=== PATIENT | female | born 1950 | race Caucasian/White ===

== ENCOUNTER → 2022-06-11 13:15 | Outpatient (CLI) | payer OTHER, SELFPAY ==
--- NOTE | 2022-06-11 | DI.RAD.S_ITS ---
PROCEDURE: XR HIP W PEL IF DONE RT 2V INDICATIONS: right hip pain, osteoarthritis of right hip TECHNIQUE: AP pelvis with lateral view(s) of the right hip(s). COMPARISON: [facility], , XR PELVIS WITH LATERAL HIP RIGHT, 05/02/2021, 11:00. FINDINGS: Bones: No acute fractures or dislocations. Pelvic ring appears intact. No suspicious bony lesions. Severe degenerative changes of the right hip with pronounced joint space loss, subchondral sclerosis, and joint spurring. Severe degenerative changes of the left hip also demonstrated. Soft tissues: The visualized bowel gas pattern is normal. No suspicious soft tissue calcifications. IMPRESSION: Severe degenerative changes of both hips, right worse than left. Dictated by: Arnulfo Andersen M.D. on 06/11/2022 at 18:49 Approved by: Arnulfo Andersen M.D. on 06/11/2022 at 18:52
== END ==
PROVIDERS: PCP Physician Assistant; Referring Provider Physician Assistant; Visit Provider Physician Assistant
DX: M16.11 Unilateral primary osteoarthritis, right hip (principal); M25.551 Pain in right hip
CPT/HCPCS: 73502

== ENCOUNTER → 2024-03-18 12:28 | Outpatient (CLI) | payer OTHER, SELFPAY ==
--- NOTE | 2024-03-18 12:31 | EKG_ITS ---
[place] [id number] [address] [place] [id number] Test Date: 2024-03-18 Pat Name: Emily Galvez Department: [facility] Room: Gender: Female Speeder Hand: PADILLA : 1950 Requested By: Order Number: [id number] Reading MD: Kirk Espinoza Measurements Intervals [place] Rate: 73 P: 1 IL: 188 QRS: -20 QRSD: 84 T: 69 QT: 384 QTc: 423 Interpretive Statements Sinus rhythm with premature atrial complexes Moderate voltage criteria for LVH, may be normal variant ( R in aVL , Carlos product ) Electronically Signed On 03-21-2024 15:19:55 PDT by Kirk Espinoza
[2024-03-18 13:32] LABS: Add Manual Diff / Slide Review NO; Basophils Absolute Auto 0 /uL (0-100); Basophils Percent Auto 0.5 % (0-2); Eosinophils Absolute Auto 200 /uL (0-450); Eosinophils Percent Auto 2.7 % (2-4); Hematocrit 32.5 % (36-46); Hemoglobin 10.6 g/dL (12.0-16.0); Lymphocytes Absolute Auto 1700 /uL (1100-4500); Lymphocytes Percent Auto 19.5 % (25-40); Mean Corpuscular HGB Conc 32.5 % (30-36); Mean Corpuscular Hemoglobin 26.8 PG (26-34); Mean Corpuscular Volume 82.5 fL (80-100); Monocytes Absolute Auto 400 /uL (0-900); Monocytes Percent Auto 5.2 % (3-14); Neutrophils Absolute Auto 6200 /uL (1500-7000); Neutrophils Percent Auto 72.1 % (50-75); Platelet Count 259 X10^3/uL (150-400); Red Blood Cell Count 3.95 X10^6/uL (4.0-5.2); Red Cell Distribution Width 15.8 % (11.6-14.8); White Blood Cell Count 8.6 X10^3/uL (4.5-11.0)
[2024-03-18 13:38] LABS: Hemoglobin A1C% w Est Avg Glu 5.9 % (4.0-6.0)
[2024-03-18 13:42] LABS: BUN Creatinine Ratio 23.5 (6-22); Blood Urea Nitrogen 24 mg/dL (7-17); Calcium 8.9 mg/dL (8.4-10.2); Carbon Dioxide 23 mmol/L (22-32); Chloride 107 mmol/L (98-107); Estimated Glomerular Filt Rate 58 mL/min (>60); Glucose 168 mg/dL (80-110); HEMOLYSIS < 15 (0-50); Potassium 5.1 mmol/L (3.4-5.1); Sodium 140 mmol/L (137-145)
[2024-03-18 14:33] LABS: Appearance Urine UA CLOUDY; Bilirubin Urine UA NEGATIVE (NEGATIVE); Color Urine UA YELLOW; Glucose Urine UA NEGATIVE (Negative); Ketones Urine UA NEGATIVE (NEGATIVE); Leukocyte Esterase Urine UA 3+ (NEGATIVE); Nitrite Urine UA POSITIVE (Negative); Occult Blood Urine UA NEGATIVE (Negative); Protein Urine UA NEGATIVE (Negative); Specific Gravity Urine UA 1.015 (1.000-1.035)
[2024-03-18 14:34] LABS: Urine Volume 10mL (spun); pH Urine UA 5.5 (4.5-8.0)
[2024-03-18 14:35] LABS: Bacteria Urine Moderate (10-30); Culture Indicated Urine Specimen Cultured; RBC Urine None Seen (0-5/HPF); Squamous Epithelial Cell Urine 1-5 /HPF (0-5/HPF); WBC Urine 10-30/HPF (0-5/HPF)
== END ==
LOC: LAB 12:29
PROVIDERS: PCP Physician Assistant; Referring Provider Orthopaedic Surgery; Visit Provider Orthopaedic Surgery
DX: Z01.818 Encounter for other preprocedural examination (principal); R73.9 Hyperglycemia, unspecified; Z01.812 Encounter for preprocedural laboratory examination; N39.0 Urinary tract infection, site not specified
CPT/HCPCS: 36415; 80048; 81001; 83036; 85025; 87077; 87086; 87186; 93005

== ENCOUNTER 2024-04-05 11:07 | Day surgery (SDC) | payer MEDICARE, SELFPAY ==
[2024-04-01 13:47] VITALS: BMI 39.7
[2024-04-05] VITALS (11 sets, daily range): BP systolic 119–179; BP diastolic 55–79; PULSE 68–80; RESP 12–20; TEMP 36.6–36.8; O2SAT 96–100; BMI 40.3
--- NOTE | 2024-04-05 | DI.RAD.S_ITS ---
PROCEDURE: XR PELVIS 1-2V INDICATIONS: SRI RIGHT, INTRAOP TECHNIQUE: 1 view(s) of the pelvis acquired. [facility] [place], XR PELVIS WITH LATERAL HIP RIGHT, 03/17/2024, 14:58. FINDINGS: Bones: Right hip arthroplasty. Intraoperative images. Soft tissues: Surgical changes are present. IMPRESSION: Intraoperative images for right hip arthroplasty. Please see operative note for full details. Dictated by: Cheikh Calix M.D. on 04/05/2024 at 16:06 Approved by: Cheikh Calix M.D. on 04/05/2024 at 16:06
--- NOTE | 2024-04-05 08:00 | DI.RAD.S_ITS ---
PROCEDURE: XR HIP W PEL IF DONE RT 2V INDICATIONS: SRI TECHNIQUE: AP pelvis and lateral view of the hip acquired. COMPARISON: [facility], [place], XR HIP W PEL IF DONE RT 2V, 06/11/2022, 13:43. [facility], [place], XR PELVIS 1-2V, 04/05/2024, 14:53. FINDINGS: Bones: Patient is status post right hip arthroplasty, with hardware components in expected positions. The hip joint appears congruent. The visualized bony structures appear intact. Severe left hip arthritic change. Soft tissues: Overlying postoperative changes are noted. No suspicious soft tissue densities. IMPRESSION: Expected post-operative appearance of a hip arthroplasty. Dictated by: Rosio Shin M.D. on 04/05/2024 at 17:13 Approved by: Rosio Shin M.D. on 04/05/2024 at 17:13
[2024-04-05] MEDS: CELECOXIB 200 MG CAPSULE PO (11:51)
[2024-04-05] MEDS: LACTATED RINGERS 1,000 ML 42 ML IV (11:51)
[2024-04-05] MEDS: ACETAMINOPHEN 325 MG TABLET 975 MG PO (11:51)
[2024-04-05] MEDS: VANCOMYCIN 1,500 MG/300 ML PIGGYBACK 200 MG IV (11:52)
--- NOTE | 2024-04-05 13:30 | PM.PREOP ---
Pre-operative Note Interval Note History & Physical reviewed/Exam performed by Physician: Yes Changes to H&P: No
--- NOTE | 2024-04-05 13:45 | PM.OP.1 ---
Operative Date/Time/Diagnoses Date of procedure: 04/05/24 Time of procedure: 14:00 Pre-op diagnosis: Severe right hip OA, morbid obesity, DM Post-op diagnosis: same Procedure & Clinicians Procedure: Right total hip arthroplasty posterior approach Same procedure as scheduled: Yes Indications: The patient has had progressively worsening right hip pain with radiographic changes consistent with arthritis. Non-operative management has failed and the patient has requested total hip replacement. The risks, benefits and alternatives to surgery were discussed with the patient prior to proceeding. Risks discussed included, but were not limited to, failure to relieve pain, leg length discrepancy, dislocation, stiffness, infection, nerve damage, deep venous thrombosis, pulmonary embolism, stroke, coma, heart attack, permanent paralysis and , as well as the potential need for eventual revision of the prosthetic. Surgeon: Kamila Gar Sagger Filler: Nestor Liu Anesthesia Type: General and Spinal Operative Notes Findings: Severe right hip OA, adequate stability, adequate bone Closure Type: primary Specimen(s): none sent Prosthetic devices, grafts, tissues, transplants, or devices: Gar and nephew R3 size 52, neutral poly liner, one 6.5 mm screw, polar stem standard offset size 2, 36 x +0 cobalt chrome head Estimated Blood Loss (mL): 250 Blood products transfused: none Procedure in detail: The patient was seen in the pre-operative area, where the patient identified the right hip as the operative site and this was marked with my initials. The patient received pre-operative antibiotics and was taken to the operating room and placed on the operative table in the left lateral decubitus position after satisfactory anesthesia. A multimedia developer out was performed. The right leg was prepared from the ankle to the iliac crest with ChloroPrep in the usual fashion and draped through sterile drapes. The hip was approached through an approximately 24 cm incision centered over the greater trochanter and curving gently posteriorly as it went proximally. This was carried sharply to the fascia yudelka, which was divided and retracted with a self retaining retractor. The trochanteric bursa was excised with care being taken to avoid the sciatic nerve, which was identified and protected throughout the case. The short external rotators were incised and the capsulomuscular flap was raised and tagged for later repair. The hip was dislocated, and a femoral neck osteotomy performed approximately 15 mm above the lesser trochanter. Retractors were placed around the femur. The canal was opened with a box cutting osteotome, followed by a T handled reamer and a lateralizing reamer. The chili pepper broach was then used, followed by sequential broaching until there was good stability of the broach in the femur. Retractors were placed to expose the acetabulum. The labrum and central soft tissues were removed. Reaming was performed initially going up in 2 mm increments, then 1 mm increments until good bite was obtained with an odd sized reamer. The cup 1 mm larger than the last reamer was then inserted using the appropriate anteversion guides. It was further stabilized with a single screw. A trial neutral liner was placed. The broach was placed in the canal. A trial head and neck were then placed and the hip relocated and checked for leg length and stability. An intraoperative film confirmed the component position and no evidence of fracture. The patient was stable in the position of sleep, of squatting, and could be put through a range of motion with 45 degrees internal rotation without dislocation. At 90 degrees flexion, internal rotation to 70 ? was possible before dislocation. This was felt to be satisfactory and the appropriate components were opened, and the trials were removed. The acetabular liner was impacted into position. The final stem was then impacted into the prepared femoral canal. A brief Betadine and hydrogen peroxide soak was performed while trialing with head options. The hip was meticulously irrigated with normal saline. Finally the femoral head was impacted onto the stem. The acetabulum was cleared of all material and the hip relocated one final time. The capsulomuscular flap was then repaired to the greater trochanter though an awl hole using the tag sutures. The short external rotators were repaired with a nonabsorbable suture. A deep drain was placed and brought out anteriorly. The fascia yudelka was closed with Vicryl. The subcutaneous tissues were closed in multiple layers. The subcutaneous layer was closed with barbed sutures and skin conrad. A rosa dressing was applied and the patient was taken to recovery having tolerated the procedure well. Complications: none Post-operative Condition: stable Disposition: Acute Care Plan for aftercare: The patient will be maintained on a standard total hip replacement protocol with weight bearing as tolerated and posterior hip precautions. The patient will receive Aspirin and sequential compression devices for DVT prophylaxis. The patient will be discharged home when safe for the home environment.
--- NOTE | 2024-04-05 14:03 | SUR.OPER ---
Lateral on padded OR bed. Gel axillary roll. Arms secured on padded armboard with pillow supporting top arm. Padded hip positioner braces x4 - anterior and posterior chest and pelvis. Additional gel pad used anterior pelvis. Gel pad under bottom leg from knee to foot and secured with tape over sheet.
[2024-04-05] MEDS: CEFAZOLIN 2 GM/100 ML PREMIX 100 ML IV ×2 (14:10→21:43)
[2024-04-05] MEDS: TRANEXAMIC ACID 1,000 MG in SODIUM CHLORIDE 0.9% 100 ML 200 MG IV ×2 (14:21→15:56)
--- NOTE | 2024-04-05 14:33 | SUR.OPER ---
PT HAS SMALL SKIN MASS UNDER PANSA ON RIGHT LOWER QUADRANT. DR JOLLY AWARE.
[2024-04-05] MEDS: BUPIVACAINE 0.25% (PF) 60 ML, EPINEPHrine 0.3 MG INJ ×2 (14:41→15:48)
[2024-04-05] MEDS: BUPIVACAINE LIPOSOME 266 MG/20 ML VIAL INJ (15:47)
[2024-04-05] MEDS: ONDANSETRON 4 MG/2 ML INJ IV ×2 (16:48→17:49)
[2024-04-05] MEDS: OXYCODONE IR 5 MG TABLET PO ×3 (17:11→20:38)
[2024-04-05] MEDS: LACTATED RINGERS 1,000 ML 100 ML IV (17:32)
[2024-04-05] MEDS: ACETAMINOPHEN 325 MG TABLET 650 MG PO (17:49)
--- NOTE | 2024-04-05 18:22 | PC.NURSE ---
Pt to room 216 via bed from PACU. Pt is awake and oriented x 3. Family members are present at the bedside. Pt was given Zofran for nausea and is not having emesis. O2 sat is 99% on RA. Pt has been instructed on how to use the IS spirometer and Pt was able perform return demonstration and was very encouraging to Pt. SCD's on and running, IVF infusing as ordered, Bed alarm on for safety. Pt oriented to room, call light, bed controls, and tv controls. Pt agrees to not get up without assistance and to use call light for assistance as needed.
[2024-04-05] MEDS: IBUPROFEN 400 MG TABLET PO (18:35)
[2024-04-05] MEDS: HYDROCODONE/ACET 5/325 TABLET 1 TAB PO (20:37)
[2024-04-05] MEDS: ATORVASTATIN 20 MG TABLET PO (20:38)
[2024-04-05] MEDS: SERTRALINE 50 MG TABLET 100 MG PO (20:39)
[2024-04-05] MEDS: ASPIRIN EC 81 MG TABLET PO (20:39)
[2024-04-05] MEDS: lisinopriL 20 MG TABLET PO (20:39)
[2024-04-05] MEDS: DOCUSATE 100 MG CAPSULE PO (20:39)
[2024-04-05] MEDS: METFORMIN XR 500 MG TABLET PO (20:39)
[2024-04-06 00:45] VITALS: BP 144/64; PULSE 78; RESP 18; O2SAT 99
[2024-04-06] MEDS: IBUPROFEN 400 MG TABLET PO (00:59)
[2024-04-06] MEDS: OXYCODONE IR 5 MG TABLET PO ×2 (01:00→04:02)
[2024-04-06] MEDS: ACETAMINOPHEN 325 MG TABLET 650 MG PO (04:02)
[2024-04-06] MEDS: CEFAZOLIN 2 GM/100 ML PREMIX 100 ML IV (05:18)
[2024-04-06] MEDS: LORazepam 1 MG TABLET PO ×3 (05:20→19:55)
--- NOTE | 2024-04-06 06:56 | PM.PNPO.1 ---
Subjective Subjective Date Patient Seen: 04/06/24 Time Patient Seen: 06:56 Interval history: Pt seen by Dr Gar this morning. Per Dr Gar, pt having a lot of anxiety related to postop progress, but spouse feels she will be ready for discharge later today. Has not been OOB or worked w/ PT yet. Exam Vital Signs (past 8 hours): - 04/06/24 00:45 Pulse Rate 78 Respiratory Rate 18 Blood Pressure 144/64 H Pulse Oximetry 99 Oxygen Delivery Method Room Air Oxygen Flow Rate 0 Narrative Exam Narrative: 3/5 strength in hip flexors, quadriceps, hamstrings; 5/5 PF, DF, EHL on right. Sensation to light touch intact throughout RLE, calf soft and compressible. Dressing CDI. [facility], [facility] Medical History (Updated 04/05/24 @ 12:01 by Johanna Stuart RN) Morbid obesity Anxiety Depression RLS (restless legs syndrome) Osteoarthritis Diabetes Hypothyroidism HLD (hyperlipidemia) HTN (hypertension) Surgical History (Updated 04/06/24 @ 06:58 by Cynthia Kaur PA-C) Hx of tonsillectomy Social History household members: spouse and children Smoking Status: Never smoker alcohol intake: never Assessment & Plan Post-op Assessment and plan (1) S/P total hip arthroplasty: Assessment and Plan narrative: 1) PT and caregiver training. WBAT to RLE, posterior hip precautions. May be able to d/c home later today if she makes adequate progress w/ PT. 2) Pt on hydrocodone 5/325 BID at baseline. This should be continued w/ oxycodone PRN for acute postsurgical pain. 3) Continue ASA 81mg BID for VTE prophylaxis. 4) Will send postop rxs in the event pt would like to d/c home later today. Postoperative Procedures: Procedures Operation Date: 04/05/24 13:15 Actual Procedure Side Surgeon p Total Hip Arthroplasty Right Kamila Gar MD Postoperative day: 1
[2024-04-06] MEDS: HYDROCODONE/ACET 5/325 TABLET 1 TAB PO ×2 (08:37→20:57)
[2024-04-06] MEDS: ASPIRIN EC 81 MG TABLET PO ×2 (08:37→21:02)
[2024-04-06] MEDS: LEVOTHYROXINE 50 MCG TABLET PO (08:37)
[2024-04-06] MEDS: SERTRALINE 50 MG TABLET 100 MG PO ×2 (08:38→20:57)
[2024-04-06] MEDS: DOCUSATE 100 MG CAPSULE PO ×2 (08:38→21:02)
[2024-04-06] MEDS: METFORMIN XR 500 MG TABLET PO ×2 (08:38→21:03)
[2024-04-06 08:51] LABS: Hematocrit 27.7 % (36-46)
[2024-04-06 09:36] VITALS: BP 120/59; PULSE 86; TEMP 36.5; O2SAT 93
[2024-04-06] MEDS: OXYCODONE IR 10 MG TABLET PO ×3 (10:46→18:13)
--- NOTE | 2024-04-06 10:46 | OT.IP.EVAL ---
Current Diagnoses Unilateral primary osteoarthritis, right hip (04/05/24) Presence of unspecified artificial hip joint (04/05/24) Surgery Performed Operation Date: 04/05/24 13:15 Actual Procedures p Total Hip Arthroplasty(Right) - Kamila Gar MD Past Medical History (Last Updated 04/05/24 @ 12:01 by Johanna Stuart, [place]) Anxiety Depression Diabetes HLD (hyperlipidemia) HTN (hypertension) Hypothyroidism Morbid obesity Osteoarthritis RLS (restless legs syndrome) Surgical History (Last Updated 04/01/24 @ 14:09 by Gianna Mars, [place]) Hx of tonsillectomy Occupational Therapy Inpatient Evaluation/Re-Eval M1 PT/OT-IP Prior Functional Status Start: 04/06/24 10:48 Freq: NEEDED Status: Active Protocol: Document 04/06/24 10:49 [facility] (Rec: 04/06/24 11: [facility] [id number]) Medical Review Prior Functional Status Communication Independent Mobility and Gait Pt just able to walk 20ft with her 4ww. Activities of Daily Living and IADL's Pt's assisted with LB dressing needs and toileting as pt was very weak and not able to get around well. Social History Household Members spouse,children Living Arrangements House Number of Floors (Floors) One Floor Number of Stairs To Enter/Railing? Just a threshold to enter. There is 30 ft from the sidewalk to the front of the house to negotiate. Pt has a wc that they can use to assist to get her into the house. Home Environment High Toilet,Walk in Shower Home Equipment Front Wheel Walker,Four Wheel Walker,Straight Cane,Manual Wheelchair,Power Wheelchair/ Scooter,Bedside Commode,Hand Held Shower,Long Handled Shoe Horn,Business Office Technician,Sock Aid,Grab Bars In Shower Additional Social History Comment Toilet safety frame M2 OT-IP Current Condition Start: 04/06/24 10:48 Freq: Status: Active Protocol: Document 04/06/24 10:49 [facility] (Rec: 04/06/24 11:06 [facility] [id number]) Occupational Therapy Current Condition Current Condition Evaluation Date 04/06/24 Treatment Diagnosis S/P R SRI posterior Diagnosis Onset Date 04/05/24 Post Operative Precautions Posterior Hip Precautions No Hip Flexion > 90 degrees,No Hip Internal Rotation,No Hip Adduction M3 OT- IP Subjective and Pain Start: 04/06/24 10:48 Freq: Status: Active Protocol: Document 04/06/24 10:49 [facility] (Rec: 04/06/24 11:06 [facility] [id number]) OT- Subjective Occupational Therapy Visit Type Type Initial Evaluation Visit Start Time 09:55 Visit Stop Time 10:46 Occupational Therapy Visit Comments Patient Comments Pt wanting to use the BSC. Patient/Caregiver Goals To go home. OT Pain Assessment Pain When Pain Assessed During Mobility Pain Present Pain Present Pain Reported Location hip Intensity 8 Scale Used Numeric (0 - 10) M4 OT- IP ADL's Start: 04/06/24 10:48 Freq: Status: Active Protocol: Document 04/06/24 10:49 [facility] (Rec: 04/06/24 11: [facility] [id number]) OT [id number] Comments OT Self-Feeding Comments NOt at meal time. OT ADL-Grooming Comments OT Grooming Comments Pt not wanting to do at this time. OT ADL-Oral Care Comments Oral Care Comments Pt states has dentures and declined to do at this time. OT ADL-Dressing General Eval Lower Body Dressing Ability Total Assistance Areas Needing Assistance Socks Comments OT Dressing Comments Pt total assist at this time. OT ADL-Toileting General Evaluation Areas Needing Assistance Manage Clothing,Perform Perineal Hygiene Comments OT Toileting Comments At this time pt needing assist for all toileting needs. Pt states at home avoids getting up due to her pain and just uses the brief at night to urinal several times. Educated to pt best to get up and use the toilet or place the BSC next to her recliner and have her to assist. Getting up to use the bathroom to help prevent infections and skin breakdown. OT ADL-Bathing Comments OT Bathing Comments Sponge bath more appropriate at this time. M5 OT- IP IADL's Start: 04/06/24 10:48 Freq: Status: Active Protocol: Document 04/06/24 10:49 [facility] (Rec: 04/06/24 11:06 [facility] [id number]) OT-Instrumental Activities of Daily Living Deficits IADL Deficits Identified Deficits Home Safety Awareness Home Safety Comments Pt is a bit groggy and not thinking clearly as had ativan earlier for her anxiety. Medication Management Medication Management Comments Best for to assist. Money Management Money Management Comments Best for her to assist . Meal Preparation Meal Preparation Caregiver Provides Assist Refueler Refueler Caregiver Provides Assist M6 OT- IP Functional Cognition Start: 04/06/24 10:48 Freq: Status: Active Protocol: Document 04/06/24 10:49 [facility] (Rec: 04/06/24 11:06 [facility] [id number]) Cognitive Factors Limiting Selfcare Function Cognitive Ability Level of Alertness Drowsy Patient Orientation Name,Place,Situation Attention Span Ability Capable of Focused Attention, Unable to Sustain Attention Ability to Follow Commands Able to Follow One Step Commands with Increased Time, Able to Follow One Step Commands with Repetition Safety Awareness Decreased Recall of Precautions Cognitive Comments Cognitive Assessment Comments Pt very sleepy and groggy and not able to recall hip precautions with educations. Pt is also very anxious and needing lots of encouragement and concrete cues to follow. OT- Vision and Hearing OT- Vision Assessment Visual Acuity Glasses For Reading Visual Attentiveness WFL Occular Pursuits WFL M7 OT- IP Mobility and Balance Start: 04/06/24 10:48 Freq: Status: Active Protocol: Document 04/06/24 10:49 [facility] (Rec: 04/06/24 11:06 [facility] [id number]) OT-Transfer Assessment Sit to and From Stand Sit to and from Stand Maximum Assistance,2 Person Assistance Transfers Transfer Ability Maximum Assistance,2 Person Assistance Technique Transfer Destination Bedside Commode,Chair Transfer Technique Stand Step Pivot Devices Transfer Assistive Devices Gait Belt,Front Wheeled Walker Comments Mobility Comments MAXA AX 2 to stand and vc to follow her hip precautions for hand placement and to slide her RLE forwards prior to sitting and standing. Pt needing assist to help slide her RLE at this time due to weakness. MAX AX 2 with FWW to transfer to [facility]. Assist for balance to and help move the FWW. OT- Balance Assessment Sitting Balance and Reactions Static Sitting Balance Ability Good Dynamic Sitting Balance Ability Fair Standing Balance and Reactions Static Standing Balance Ability Poor Dynamic Standing Balance Ability Poor M8 OT- IP Objective Assessments Start: 04/06/24 10:48 Freq: Status: Active Protocol: Document 04/06/24 10:49 [facility] (Rec: 04/06/24 11:06 [facility] [id number]) OT Gross Range of Motion Upper Extremity Range of Motion ROM Impairments WFL for transfer needs. OT Strength Comments Strength Comments WFL for transfer needs. M9 OT- IP Assessment and Plan Start: 04/06/24 10:48 Freq: Status: Active Protocol: Document 04/06/24 10:49 [facility] (Rec: 04/06/24 11:06 [facility] [id number]) OT Summary Assessment and Plan Potential Rehabilitation Potential Good Analytic Complexity at Evaluation Low Summary OT Impairments Pain,Strength,Balance, Functional Mobility,Grooming, Dressing,Toileting,Bathing, Toilet Transfers,Shower Transfers,Activity Tolerance Progress Towards Goals Slow Progress due to Pain,Slow Progress due to Medical Issues,Slow Progress due to Activity Tolerance Assessment Summary Pt low complexity and main barriers are transitions, now needing two person assist for mobility and toileting needs and too great for her to be able to assist her at this time. At pt's current level, pt would benefit from skilled rehab. Pt's has anxiety which also influences her mobility and function. Hopeful pt to improve and progress so able to go home with 24/7 assist and home health versus outpt PT. Goals Self-Feeding Goal Independent Grooming Goal Independent Dressing Goal Moderate Assistance Toileting Goal Moderate Assistance Bathing Goal Moderate Assistance Toilet Transfer Goal Minimal Assistance Shower Transfer Goal Moderate Assistance Days to Meet Goals 20 Frequency of Treatment Other frequency 5x/week Treatment Plan OT Treatment Plan ADL Training,Functional Mobility,Patient/Family Education,Discharge Planning Other Treatment Recommendations and Next Transfer to [facility] with MAX X 1 Treatment Focus with FWW Discharge Recommendations OT Discharge Recommendations SNF Rehab Other Discharge Recommendations Hopeful pt to progress and go home with 24/7 assist and home health versus outpt PT. Transportation Needs at Discharge Wheelchair/Cabulance
--- NOTE | 2024-04-06 11:30 | PT.IIE ---
Current Diagnoses Unilateral primary osteoarthritis, right hip (04/05/24) Presence of unspecified artificial hip joint (04/05/24) Surgery Performed Operation Date: 04/05/24 13:15 Actual Procedures p Total Hip Arthroplasty(Right) - Kamila Gar MD Surgical History (Last Updated 04/01/24 @ 14:09 by Gianna Mars, RN) Hx of tonsillectomy Medical History (Last Updated 04/05/24 @ 12:01 by Johanna Stuart, WYATT) Anxiety Depression Diabetes HLD (hyperlipidemia) HTN (hypertension) Hypothyroidism Morbid obesity Osteoarthritis RLS (restless legs syndrome) Physical Therapy Inpatient Evaluation/Re-Eval M1 PT/OT-IP Prior Functional Status Start: 04/06/24 13:19 Freq: NEEDED Status: Active Protocol: Document 04/06/24 11:30 AB (Rec: 04/06/24 13:34 AB [id number]) Medical Review Prior Functional Status Medical History Reviewed Yes Communication able to make needs known; has memory issues Mobility and Gait pt stated that her spouse assists her with mobility; uses a 4WW for walking but usually justs stay on her lift chair Activities of Daily Living and IADL's per OT note: Pt's assisted with LB dressing needs and toileting as pt was very weak and not able to get around well. Social History Household Members spouse Living Arrangements House Number of Floors (Floors) One Floor Number of Stairs To Enter/Railing? Just a threshold to enter. There is 30 ft from the sidewalk to the front of the house to negotiate. Pt has a wc that they can use to assist to get her into the house. Home Environment High Toilet,Walk in Shower Home Equipment Front Wheel Walker,Four Wheel Walker,Straight Cane,Manual Wheelchair,Power Wheelchair/ Scooter,Bedside Commode,Hand Held Shower,Long Handled Shoe Horn,Internet Architect,Sock Aid,Lift Recliner,Grab Bars Near Toilet ,Grab Bars In Shower Additional Social History Comment pt has her spouse and grandson to assist her at home M2 PT-IP Current Condition Start: 04/06/24 13:19 Freq: NEEDED Status: Active Protocol: Document 04/06/24 11:30 AB (Rec: 04/06/24 13:34 AB [id number]) Physical Therapy Current Condition Current Condition Evaluation Date 04/06/24 Treatment Diagnosis s/p R SRI posterior; difficulty in walking Onset Date 04/05/24 M3 PT-IP Subjective Start: 04/06/24 13:19 Freq: NEEDED Status: Active Protocol: Document 04/06/24 11:30 AB (Rec: 04/06/24 13:34 [id number]) Subjective Physical Therapy Visit Type Type Initial Evaluation Visit Start Time 11:30 Visit Stop Time 12:10 Number of SITE MANAGER Visits 0 Physical Therapy Visit Comments Patient Comments agreeable to do PT Therapy Pain Assessment Pain When Pain Assessed During Mobility Location hip Scale Used pain scale not stated M4 PT-IP Mobility and Gait Start: 04/06/24 13:19 Freq: NEEDED Status: Active Protocol: Document 04/06/24 11:30 AB (Rec: 04/06/24 13:34 [id number]) PT-Bed Mobility Assessment Sit to Supine Sit to Supine Maximum Assistance,Total Assistance,2 Person Assistance ,Head of Bed Elevated,Bedrails PT-Transfer Assessment Sit to and From Stand Sit to and from Stand Maximum Assistance,2 Person Assistance,Use of Upper Extremities Equipment Transfer Assistive Device Gait Belt,Front Wheeled Walker Orthotic/Prosthetic Devices or Brace: No Transfers Transfer Destination Bed Transfer Technique Stand Step Pivot Transfer Ability Level of Assist Maximum Assistance,1 Person Assistance,2 Person Assistance ,Use of Upper Extremities Comments Mobility Comments pt sitting on the chair and agreeable to do PT. obtained PLOF and home setup from pt. reviewed posterior hip precautions with pt and pt unable to recall even with repetitions. pt with memory issues needing cues and repeated instructions. Attempted sit to stand with max A but pt unable. attempted again and completed max A x 2 and max cues. instructed pt to take steps and was only able to take 2 steps using FWW max A x 1-2 and max cues. encouraged pt to stay up on the chair for lunch but pt refused and wants to go to bed. able to take steps back to bed using FWW max A x 1-2 and max cues. completed sit to supine max A x 2 to total A x 2 and max cues. positioned pt in bed. call light and table placed within reach. Gait Assessment Gait Gait Assistance Required: Maximum Assistance,1 Person Assist,2 Person Assist Distance (Feet) 2 Able to Maintain Weight Bearing Status Yes During Gait Assistive Devices Assistive Device Gait Belt,Front Wheeled Walker Orthotic/Prosthetic Devices or Brace: No Gait Deviations General Gait Pattern Antalgic,Decreased Stride Length Factors Limiting Gait Function Factors Limiting Gait Function Decreased Strength,Limited Range of Motion,Pain,Poor Balance,Poor Safety Awareness Comments Gait Comments step during transfers PT-Balance Assessment Sitting Balance and Reactions Static Sitting Balance Ability Good Dynamic Sitting Balance Ability Fair Standing Balance and Reactions Static Standing Balance Ability Poor Dynamic Standing Balance Ability Poor Device Used FWW M5 PT-IP Objective Assessments Start: 04/06/24 13:19 Freq: NEEDED Status: Active Protocol: Document 04/06/24 11:30 AB (Rec: 04/06/24 13:34 AB [id number]) Orientation Orientation/Cognition Level of Alertness Alert Orientation Name Language Function Ability Hard of Hearing Safety Awareness Decreased Safety Awareness Memory Description Short Term Impaired,Retirement Impaired Strength Lower Extremity Strength Assessment Bilaterally Impaired Comments Strength Comments RLE: 3-/5 LLE: 3+/5 Muscle Tone Muscle Tone WNL Yes M6 PT-IP Treatment Start: 04/06/24 13:19 Freq: NEEDED Status: Active Protocol: Document 04/06/24 11:30 AB (Rec: 04/06/24 13:34 AB [id number]) Physical Therapy Treatment Education Education Provided Precautions,Weight Bearing Status,Safety M7 PT-IP Assessment and Plan Start: 04/06/24 13:19 Freq: NEEDED Status: Active Protocol: Document 04/06/24 11:30 AB (Rec: 04/06/24 13:34 AB [id number]) PT Summary Assessment and Plan Potential Rehabilitation Potential Fair Status of Condition at Evaluation Evolving Summary Impairments Pain,ROM,Strength,Balance, Coordination,Sensation,Tone, Cognition,Bed Mobility, Transfers,Gait,Activity Tolerance Assessment Summary pt is a 73 y/o F s/p R SRI posterior approach POD 1. pt with R hip posterior precautions and is WBAT on RLE . pt unable to recall and no carryover of her hip precautions needing max cues with all tasks. pt requiring max A x 2 for bed mobility and transfers using fWW and only able to take a few steps to transfer and not ambulate much . pt will require SNF rehab to improve overall strength and mobility. Goals Bed Mobility Goal Moderate Assistance Transfer Goal Moderate Assistance,Front Wheeled Walker Gait Goal Moderate Assistance,Front Wheel Walker Gait Distance 50 Other Goals improve transfers, ambulation using FWW 100 ft SBA Days to Meet Goals 10 Frequency of Treatment Frequency Of Treatment Twice a Day Treatment Plan Physical Therapy Treatment Plan Bed Mobility Training,Transfer Training,Gait Training, Therapeutic Exercise,Balance Retraining,Post Op Education, Discharge Planning,Hot or Cold Pack,Neuromuscular Re-ed, Coordination Retraining,Manual Therapy Precautions Posterior Hip Precautions No Hip Flexion > 90 degrees,No Hip Internal Rotation,No Hip Adduction Weight Bearing Status Weight Bearing Status Weight Bear as Tolerated Allowed Weight Bearing Amount (enter % RLE WBAT or #) (%) Recommendations To Nursing Amount of Assist Needed 2 Person Assist Discharge Recommendations PT Discharge Recommendations SNF Rehab Transportation Needs at Discharge Wheelchair/Cabulance
[2024-04-06 12:53] VITALS: BP 139/58; PULSE 86; RESP 16; TEMP 36.8; O2SAT 94
--- NOTE | 2024-04-06 16:18 | PT-IP ANOTE ---
checked on pt and spouse in room. pt refused PT. informed spouse regarding SNF rehab and agreed. will f/u.
--- NOTE | 2024-04-06 16:51 | CM.DPNOTE ---
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 Pt here for planned right total hip, pt is POD1. SDC. PT/OT current rec =SNF. Payer HUmana TERESE arellano Family hopeful pt will improve and be able to dc home with spouse support tomorrow, . Pt lives with spouse in [place]. CM team will continue to follow closely MEKA Reardon
[2024-04-06 20:00] VITALS: BP 157/62; PULSE 92; RESP 24; TEMP 37; O2SAT 98
[2024-04-06] MEDS: ATORVASTATIN 20 MG TABLET PO (20:57)
[2024-04-06 20:58] VITALS: BP 158/75; PULSE 102
[2024-04-06] MEDS: lisinopriL 20 MG TABLET PO (20:58)
[2024-04-07] MEDS: OXYCODONE IR 10 MG TABLET PO (04:31)
[2024-04-07] MEDS: LEVOTHYROXINE 50 MCG TABLET PO (05:43)
--- NOTE | 2024-04-07 07:55 | PM.PNPO.1 ---
Subjective Subjective Date Patient Seen: 04/07/24 Time Patient Seen: 07:55 Interval history: And states pain is controlled with oral medications. She has not able to work with physical therapy in the afternoon due to weakness in her right leg. She is motivated to work with physical therapy this morning and tried to be discharged home versus a SNF. is present today Denies any fever chills nausea or vomiting. Exam Vital Signs (past 8 hours): Oxygen Delivery Method Room Air Oxygen Flow Rate 0 Narrative Exam Narrative: 3/5 strength in hip flexors, quadriceps, hamstrings; PF, DF, EHL on right. 5/5 strength in hip flexors, quadriceps, hamstrings; PF, DF, EHL on left. Sensation to light touch intact throughout RLE, calf soft and compressible. Dressing CDI. JIMENA functioning. SCDs on and working. Objective Labs 04/06/24 08:00 Labs: Laboratory Results - last 24 hr 04/06/24 08:00 Hgb 9.0 L Hct 27.7 L PFSH Medical History (Updated 04/05/24 @ 12:01 by Johanna Stuart RN) Morbid obesity Anxiety Depression RLS (restless legs syndrome) Osteoarthritis Diabetes Hypothyroidism HLD (hyperlipidemia) HTN (hypertension) Surgical History (Updated 04/06/24 @ 06:58 by Cynthia Kaur PA-C) Hx of tonsillectomy Social History household members: spouse Smoking Status: Never smoker alcohol intake: never Assessment & Plan Post-op Postoperative Procedures: Procedures Operation Date: 04/05/24 13:15 Actual Procedure Side Surgeon p Total Hip Arthroplasty Right Kamila Gar MD Postoperative day: 2 Postoperative status: doing well Postoperative plan: routine post-op care and ambulate Postoperative plan narrative: Continue to work with PT for ambulation. Patient is motivated to be discharged home versus going to a SNF. Weightbearing as tolerated with right lower extremity posterior hip precautions Continue with ASA 81 mg b.i.d. for VTE prophylaxis. Keep SCDs on when resting in bed. Pending PT evaluation may discharge home today or tomorrow versus discharge to SNF. Time Spent With Patient Time with patient: less than 15 minutes
[2024-04-07 08:00] VITALS: BP 139/54; PULSE 79; RESP 16; TEMP 36.6; O2SAT 99
[2024-04-07] MEDS: HYDROCODONE/ACET 5/325 TABLET 1 TAB PO (08:27)
[2024-04-07] MEDS: OXYCODONE IR 5 MG TABLET PO ×2 (08:28→14:26)
[2024-04-07] MEDS: METFORMIN XR 500 MG TABLET PO (08:28)
[2024-04-07] MEDS: SERTRALINE 50 MG TABLET 100 MG PO (08:28)
[2024-04-07] MEDS: ASPIRIN EC 81 MG TABLET PO (08:29)
[2024-04-07] MEDS: DOCUSATE 100 MG CAPSULE PO (08:29)
--- NOTE | 2024-04-07 09:00 | PT.IPTN ---
Current Diagnoses Unilateral primary osteoarthritis, right hip (04/05/24) Presence of unspecified artificial hip joint (04/05/24) Surgery Performed Operation Date: 04/05/24 13:15 Actual Procedures p Total Hip Arthroplasty(Right) - Kamila Gar MD Physical Therapy Treatment Note M2 PT-IP Current Condition Start: 04/06/24 13:19 Freq: NEEDED Status: Active Protocol: Document 04/06/24 11:30 AB (Rec: 04/06/24 13:34 AB [id number]) Physical Therapy Current Condition Current Condition Evaluation Date 04/06/24 Treatment Diagnosis s/p R SRI posterior; difficulty in walking Onset Date 04/05/24 M3 PT-IP Subjective Start: 04/06/24 13:19 Freq: NEEDED Status: Active Protocol: Document 04/07/24 10:40 TS (Rec: 04/07/24 10:53 TS [id number]) Subjective Physical Therapy Visit Type Type Treatment Note Visit Start Time 09:00 Visit Stop Time 09:30 Number of LABORATORY DEVELOPMENT TECHNICIAN Visits 1 Physical Therapy Visit Comments Patient Comments pt found resting in bed, spouse present, pt is agreeable to PT. Therapy Pain Assessment Pain When Pain Assessed During Mobility Pain Present Pain Present Pain Reported M4 PT-IP Mobility and Gait Start: 04/06/24 13:19 Freq: NEEDED Status: Active Protocol: Document 04/07/24 10:40 TS (Rec: 04/07/24 10:53 TS [id number]) PT-Bed Mobility Assessment Supine to Sit Supine to Sit Moderate Assistance,2 Person Assistance Scooting Scooting to Edge of Bed Moderate Assistance PT-Transfer Assessment Sit to and From Stand Sit to and from Stand Maximum Assistance,1 Person Assistance,2 Person Assistance Equipment Transfer Assistive Device Gait Belt,Front Wheeled Walker Orthotic/Prosthetic Devices or Brace: No Transfers Transfer Destination Chair Transfer Technique Stand Step Pivot Transfer Ability Level of Assist Maximum Assistance,1 Person Assistance,2 Person Assistance ,Use of Upper Extremities Comments Mobility Comments Pt recalled 2/3 hip precautions prior to mobility( did not recall int rotation). Supine to sit ModA x2, pt requires CASE SUPERVISOR for uprighting trunk. She scooted to EOB with some difficulty requiring CASE SUPERVISOR to pull FWD. STS MaxA x1-2 PA with FWW, pt uses momentum to stand and has difficulty following instructions for proper STS technique. She took 3 steps from bed with a slow step to gait and max cues for step sequencing. She became nauseous and requested to sit in chair. Stand step to chair MaxA with FWW. Pt was left in the chair, all needs met. Gait Assessment Gait Gait Assistance Required: Maximum Assistance,1 Person Assist,2 Person Assist Distance (Feet) 2 Able to Maintain Weight Bearing Status Yes During Gait Assistive Devices Assistive Device Gait Belt,Front Wheeled Walker Orthotic/Prosthetic Devices or Brace: No Gait Deviations General Gait Pattern Antalgic,Decreased Stride Length,Decreased Feet Clearance,Flexed Trunk,Step-to Gait,Wide Based Gait Factors Limiting Gait Function Factors Limiting Gait Function Decreased Strength,Difficulty Following Directions,Limited Range of Motion,Pain,Poor Balance,Poor Safety Awareness Comments Gait Comments step during transfers PT-Balance Assessment Sitting Balance and Reactions Static Sitting Balance Ability Good Dynamic Sitting Balance Ability Fair Standing Balance and Reactions Static Standing Balance Ability Poor Dynamic Standing Balance Ability Poor Device Used FWW M5 PT-IP Objective Assessments Start: 04/06/24 13:19 Freq: NEEDED Status: Active Protocol: Document 04/06/24 11:30 AB (Rec: 04/06/24 13:34 AB [id number]) Orientation Orientation/Cognition Level of Alertness Alert Orientation Name Language Function Ability Hard of Hearing Safety Awareness Decreased Safety Awareness Memory Description Short Term Impaired,Button Tufting Machine Operator Impaired Strength Lower Extremity Strength Assessment Bilaterally Impaired Comments Strength Comments RLE: 3-/5 LLE: 3+/5 Muscle Tone Muscle Tone WNL Yes M6 PT-IP Treatment Start: 04/06/24 13:19 Freq: NEEDED Status: Active Protocol: Document 04/07/24 10:40 TS (Rec: 04/07/24 10:53 TS [id number]) Physical Therapy Treatment Education Education Provided Precautions,Weight Bearing Status,Safety M7 PT-IP Assessment and Plan Start: 04/06/24 13:19 Freq: NEEDED Status: Active Protocol: Document 04/07/24 10:40 TS (Rec: 04/07/24 10:53 TS [id number]) PT Summary Assessment and Plan Potential Rehabilitation Potential Fair Summary Impairments Pain,ROM,Strength,Balance, Coordination,Sensation,Tone, Cognition,Bed Mobility, Transfers,Gait,Activity Tolerance Progress Towards Goals Slow Progress due to Pain,Slow Progress due to Activity Tolerance Assessment Summary Emily continues to make slow progress with her mobility. She requires 2PA for most mobility and safety. She has much difficulty with gait and transfers to chair. She fatigues quickly with mobility and has some nausea when on feet. Spouse assisted pt with bed mobility, STS x2 and with tranfer. Spouse and pt would like to go home and appropriate DME for pt at home . PT will continue to recommend SNF at this time to improve strength and functional mobility. If she were to go home she may require 2 person assist for safety. Goals Bed Mobility Goal Moderate Assistance Transfer Goal Moderate Assistance,Front Wheeled Walker Gait Goal Moderate Assistance,Front Wheel Walker Gait Distance 50 Other Goals improve transfers, ambulation using FWW 100 ft SBA Days to Meet Goals 10 Frequency of Treatment Frequency Of Treatment Twice a Day Treatment Plan Physical Therapy Treatment Plan Bed Mobility Training,Transfer Training,Gait Training, Therapeutic Exercise,Balance Retraining,Post Op Education, Discharge Planning,Hot or Cold Pack,Neuromuscular Re-ed, Coordination Retraining,Manual Therapy Other Recommendations and Next Treatment Home 16/02 with 2PA and HHPT. Focus Precautions Posterior Hip Precautions No Hip Flexion > 90 degrees,No Hip Internal Rotation,No Hip Adduction Weight Bearing Status Weight Bearing Status Weight Bear as Tolerated Allowed Weight Bearing Amount (enter % RLE WBAT or #) (%) Recommendations To Nursing Amount of Assist Needed 2 Person Assist Discharge Recommendations PT Discharge Recommendations SNF Rehab Transportation Needs at Discharge Wheelchair/Cabulance
[2024-04-07] MEDS: LORazepam 1 MG TABLET PO (10:03)
--- NOTE | 2024-04-07 14:12 | CM.DPC ---
Addendum entered by MEKA Bush 04/07/24 16:35: ADD: Per FINAL TOUCH UP PAINTER, pt did a little better this afternoon and feels spouse and family can manage pt at home as they are adamant to d/c home. PT recommending HH and pt and spouse have no HH preference. [facility] referral made based on pt's [employer] insurance and F2F and HH orders completed. Discharge orders placed and spouse providing transport home this evening. BF Original Note: DCP Cont: Per Ortho PA, pt likely could be stable for d/c today vs tomorrow pending progress with PT/OT today. Per FINAL TOUCH UP PAINTER, currently recommending SNF as pt a 2PA and will work with pt and spouse again this afternoon and aware that they have a good set up and DME at home. SW met bedside with pt and spouse and explained role and they confirm that no steps to enter, one level, pt sleeps in her recliner, and spouse assists as needed and they have their 30 yo grandson living there who can assist if needed as well. Pt and spouse confirm that they do not want SNF and preference is home. Plan: SW to follow closely for further PT this afternoon and they will work with pt and spouse soon, around 1430, to determine any further needs. MEKA Bush
--- NOTE | 2024-04-07 14:36 | PT.IPTN ---
Current Diagnoses Unilateral primary osteoarthritis, right hip (04/05/24) Presence of unspecified artificial hip joint (04/05/24) Surgery Performed Operation Date: 04/05/24 13:15 Actual Procedures p Total Hip Arthroplasty(Right) - Kamila Gar MD Physical Therapy Treatment Note M2 PT-IP Current Condition Start: 04/06/24 13:19 Freq: NEEDED Status: Active Protocol: Document 04/06/24 11:30 AB (Rec: 04/06/24 13:34 AB [id number]) Physical Therapy Current Condition Current Condition Evaluation Date 04/06/24 Treatment Diagnosis s/p R SRI posterior; difficulty in walking Onset Date 04/05/24 M3 PT-IP Subjective Start: 04/06/24 13:19 Freq: NEEDED Status: Active Protocol: Document 04/07/24 15:32 TS (Rec: 04/07/24 15:43 TS [id number]) Subjective Physical Therapy Visit Type Type Treatment Note Visit Start Time 14:36 Visit Stop Time 15:00 Number of DEPUTY JUVENILE OFFICER Visits 2 Physical Therapy Visit Comments Patient Comments Pt found resting in bed, reports she would like to go home, spouse in room. Therapy Pain Assessment Pain When Pain Assessed During Mobility Pain Present Pain Present Pain Reported M4 PT-IP Mobility and Gait Start: 04/06/24 13:19 Freq: NEEDED Status: Active Protocol: Document 04/07/24 15:32 TS (Rec: 04/07/24 15:43 TS [id number]) PT-Bed Mobility Assessment Supine to Sit Supine to Sit Moderate Assistance,1 Person Assistance Scooting Scooting to Edge of Bed Moderate Assistance PT-Transfer Assessment Sit to and From Stand Sit to and from Stand Moderate Assistance,1 Person Assistance Equipment Transfer Assistive Device Gait Belt,Front Wheeled Walker Orthotic/Prosthetic Devices or Brace: No Transfers Transfer Destination Chair Transfer Technique Stand Step Pivot Transfer Ability Level of Assist Moderate Assistance,1 Person Assistance Comments Mobility Comments Supine to sit ModA x1 with use of bedrails, spouse assists pt into sitting EOB. Spouse dons gait belt prior to standing. STS ModA x1 with FWW , spouse provides cues for appropriate STS technique. She ambulated ~10'ModA x1 with FWW and assist from spouse. She fatigues quickly with gait and sat in chair. Pt was left in w chair, all needs met. Gait Assessment Gait Gait Assistance Required: Moderate Assistance,1 Person Assist Distance (Feet) 10 Able to Maintain Weight Bearing Status Yes During Gait Assistive Devices Assistive Device Gait Belt,Front Wheeled Walker Orthotic/Prosthetic Devices or Brace: No Gait Deviations General Gait Pattern Antalgic,Decreased Stride Length,Decreased Feet Clearance,Flexed Trunk,Step-to Gait,Wide Based Gait Factors Limiting Gait Function Factors Limiting Gait Function Decreased Strength,Difficulty Following Directions,Limited Range of Motion,Pain,Poor Balance,Poor Safety Awareness PT-Balance Assessment Sitting Balance and Reactions Static Sitting Balance Ability Good Dynamic Sitting Balance Ability Fair Standing Balance and Reactions Static Standing Balance Ability Fair Dynamic Standing Balance Ability Poor Device Used FWW M5 PT-IP Objective Assessments Start: 04/06/24 13:19 Freq: NEEDED Status: Active Protocol: Document 04/06/24 11:30 AB (Rec: 04/06/24 13:34 AB [id number]) Orientation Orientation/Cognition Level of Alertness Alert Orientation Name Language Function Ability Hard of Hearing Safety Awareness Decreased Safety Awareness Memory Description Short Term Impaired,Correction Impaired Strength Lower Extremity Strength Assessment Bilaterally Impaired Comments Strength Comments RLE: 3-/5 LLE: 3+/5 Muscle Tone Muscle Tone WNL Yes M6 PT-IP Treatment Start: 04/06/24 13:19 Freq: NEEDED Status: Active Protocol: Document 04/07/24 15:32 TS (Rec: 04/07/24 15:43 TS [id number]) Physical Therapy Treatment Education Education Provided Precautions,Weight Bearing Status,Safety M7 PT-IP Assessment and Plan Start: 04/06/24 13:19 Freq: NEEDED Status: Active Protocol: Document 04/07/24 15:32 TS (Rec: 04/07/24 15:43 TS [id number]) PT Summary Assessment and Plan Potential Rehabilitation Potential Fair Summary Impairments Pain,ROM,Strength,Balance, Coordination,Sensation,Tone, Cognition,Bed Mobility, Transfers,Gait,Activity Tolerance Progress Towards Goals Slow Progress due to Pain,Slow Progress due to Activity Tolerance Assessment Summary Emily is making some progress with her mobility this session . She requires decreased assist this session for bed mobility, STS and gait. She continues to fatigue quickly with ambulation. spouse and pt reports they have a commode, FWW and lift chair pt can stay in. Spouse does well encouraging pt and providing cues for mobility. PT is recommending home with 16/02 care and HHPT. Goals Bed Mobility Goal Moderate Assistance Transfer Goal Moderate Assistance,Front Wheeled Walker Gait Goal Moderate Assistance,Front Wheel Walker Gait Distance 50 Other Goals improve transfers, ambulation using FWW 100 ft SBA Days to Meet Goals 10 Frequency of Treatment Frequency Of Treatment Twice a Day Treatment Plan Physical Therapy Treatment Plan Bed Mobility Training,Transfer Training,Gait Training, Therapeutic Exercise,Balance Retraining,Post Op Education, Discharge Planning,Hot or Cold Pack,Neuromuscular Re-ed, Coordination Retraining,Manual Therapy Precautions Posterior Hip Precautions No Hip Flexion > 90 degrees,No Hip Internal Rotation,No Hip Adduction Weight Bearing Status Weight Bearing Status Weight Bear as Tolerated Allowed Weight Bearing Amount (enter % RLE WBAT or #) (%) Recommendations To Nursing Amount of Assist Needed 2 Person Assist Discharge Recommendations PT Discharge Recommendations Home with 16/02 Assist Available,Home Health Transportation Needs at Discharge Private Vehicle
--- NOTE | 2024-04-07 15:16 | PM.DS.1 ---
History of Present Illness History of Present Illness Chief complaint: RT SRI 04/05 Narrative: The patient has had progressively worsening right hip pain with radiographic changes consistent with arthritis. Non-operative management has failed and the patient has requested total hip replacement. The risks, benefits and alternatives to surgery were discussed with the patient prior to proceeding. Risks discussed included, but were not limited to, failure to relieve pain, leg length discrepancy, dislocation, stiffness, infection, nerve damage, deep venous thrombosis, pulmonary embolism, stroke, coma, heart attack, permanent paralysis and , as well as the potential need for eventual revision of the prosthetic. Discharge Providers Provider Date of admission: 04/05/24 Discharge Date: 04/07/24 Primary care physician: Mai Person PA-C Consults: 04/05/24 08:00 Consult to Anesthesiology Routine Comment: Consulting Provider: Anesthesiologist Reason for consultation: Regional block for post operative pain control 04/05/24 17:20 Consult to Discharge Planning Routine Comment: Consult to Occupational Therapy Evaluate & Treat Comment: Physician Instructions: Evaluate and treat Consult to Physical Therapy Evaluate & Treat Comment: Physician Instructions: post op SRI protocol Discharge provider: Bud Zaragoza PA-C Summary Hospital Course Discharge Diagnosis: Severe right hip OA, morbid obesity, DM Hospital Course: Procedure: Right total hip arthroplasty posterior approach Findings: Severe right hip OA, adequate stability, adequate bone Closure Type: primary Specimen(s): none sent Prosthetic devices, grafts, tissues, transplants, or devices: Gar and nephew R3 size 52, neutral poly liner, one 6.5 mm screw, polar stem standard offset size 2, 36 x +0 cobalt chrome head Estimated Blood Loss (mL): 250 Status at Discharge Cognitive/behavioral status at discharge: oriented Functional status at discharge: uses cane/walker Overall status at discharge: patient is progressing back to baseline Time Spent with Patient Time spent: Less than 30 minutes Exam Vital Signs (past 8 hours): - 04/07/24 08:00 Temperature 97.9 F Pulse Rate 79 Respiratory Rate 16 Blood Pressure 139/54 L Pulse Oximetry 99 Oxygen Flow Rate 0 Oxygen Delivery Method Room Air Oxygen Flow Rate 0 Narrative Exam Narrative: States pain is controlled with oral medications. She has not able to work with physical therapy yesterday afternoon due to weakness in her right leg. She is motivated to work with physical therapy this morning and tried to be discharged home versus a SNF. is present today Denies any fever chills nausea or vomiting. 3/5 strength in hip flexors, quadriceps, hamstrings; PF, DF, EHL on right. 5/5 strength in hip flexors, quadriceps, hamstrings; PF, DF, EHL on left. Sensation to light touch intact throughout RLE, calf soft and compressible. Dressing CDI. JIMENA functioning. SCDs on and working. Resp Effort & Inspection: normal respiratory effort and able to speak in complete sentences Objective Labs 04/06/24 08:00 [facility] Medical History (Updated 04/05/24 @ 12:01 by Johanna Stuart RN) Morbid obesity Anxiety Depression RLS (restless legs syndrome) Osteoarthritis Diabetes Hypothyroidism HLD (hyperlipidemia) HTN (hypertension) Surgical History (Updated 04/06/24 @ 06:58 by Cynthia Kaur PA-C) Hx of tonsillectomy Social History household members: spouse Smoking Status: Never smoker alcohol intake: never Discharge Assessment & Plan Assessment and Plan Assessment: Status post right hip total arthroplasty Plan of Treatment: Discharge to home. Posterior hip precausions. Amublate as tolerated with assisting devices. Aspirin 81mg twice a day for 6 weeks for VTE prevention. Start outpatient PT in 5 to 10 days. Follow up in clinic in 2 weeks for wound check. Discharge Plan Discharge Plan Patient Disposition: Home Discharge orders & Medications Discharge Orders: Discharge (Order); Ordered 04/07/24 Ordered By: Bud Zaragoza Prescriptions: New acetaminophen 325 mg Tablet 650 mg PO Q6H PRN (Reason: Fever/Mild Pain (1-3)) Qty: 120 0RF Rx Instructions: DO NOT EXCEED 3000MG TOTAL ACETAMINOPHEN IN 24 HRS aspirin 81 mg Tablet,Delayed Release (Dr/Ec) 81 mg PO BID Qty: 90 0RF ibuprofen 400 mg Tablet 400 mg PO Q4H PRN (Reason: Pain, Mild (1-3)) Qty: 90 0RF ondansetron 4 mg Tablet,Disintegrating 4 mg PO Q6HR PRN (Reason: nausea and vomiting) Qty: 30 0RF oxycodone 5 mg Tablet 5 mg PO Q3H PRN (Reason: Pain, Moderate (4-6)) Qty: 30 0RF polyethylene glycol 3350 17 gram Powder In Packet 17 g PO DAILY PRN (Reason: Constipation) Qty: 100 0RF Continued hydrocodone-acetaminophen 5-325 mg Tablet 1 tab PO BID lisinopril 20 mg Tablet 20 mg PO BEDTIME sertraline 100 mg Tablet 100 mg PO BID levothyroxine 50 mcg Tablet 50 mcg PO DAILY diclofenac sodium 75 mg Tablet,Delayed Release (Dr/Ec) 75 mg PO BID metformin 500 mg Tablet Extended Release 24 Hr 500 mg PO BID rosuvastatin 10 mg Tablet 10 mg PO QPM Follow up/Referrals: Kamila Gar MD [Physician] - 04/15/24 3:40 pm (Follow up w/ Nestor Liu PA-C, at [facility] in [place].) Mai Person PA-C [Primary Care Provider] - Diet/Activity/Treatments Diet: Diet as Tolerated Activity: Weightbearing as tolerated. Posterior hip precautions. Cold/Heat Therapy: Ice to hip as needed for pain. Skin/Wound/Dressing Care Report to your healthcare provider any signs of infection, such as:: chills, fever, night sweats, unusual drainage and unusual redness Dressing: May shower. Leave dressing in place until follow up in office. No bathing or otherwise soaking incision. Call the office if the dressing becomes saturated inside. Visit Report/Discharge Packet Instructions: DI for Hip Replacement, DI for Prescription Opioid Use Stand Alone Forms: Patient Portal/API, Surgery Discharge Discharge Data Primary Care Provider: Mai Person Attending Provider: Kamila Gar
--- NOTE | 2024-04-07 15:39 | OT.IP.TRT ---
Current Diagnoses Unilateral primary osteoarthritis, right hip (04/05/24) Presence of unspecified artificial hip joint (04/05/24) Surgery Performed Operation Date: 04/05/24 13:15 Actual Procedures p Total Hip Arthroplasty(Right) - Kamila Gar MD Occupational Therapy Treatment Note M2 OT-IP Current Condition Start: 04/06/24 10:48 Freq: Status: Active Protocol: Document 04/06/24 10:49 [facility] (Rec: 04/06/24 11:06 [facility] [id number]) Occupational Therapy Current Condition Current Condition Evaluation Date 04/06/24 Treatment Diagnosis S/P R SRI posterior Diagnosis Onset Date 04/05/24 Post Operative Precautions Posterior Hip Precautions No Hip Flexion > 90 degrees,No Hip Internal Rotation,No Hip Adduction M3 OT- IP Subjective and Pain Start: 04/06/24 10:48 Freq: Status: Active Protocol: Document 04/07/24 15:39 [facility] (Rec: 04/07/24 15:48 [facility] [id number]) OT- Subjective Occupational Therapy Visit Type Type Treatment Note Visit Start Time 15:10 Visit Stop Time 15:39 Occupational Therapy Visit Comments Patient Comments Pt agreed to get dressed. Patient/Caregiver Goals To go home. OT Pain Assessment Pain When Pain Assessed At Rest Pain Present Pain Present Pain Reported Location hip Pain Behaviors Facial Grimacing M4 OT- IP ADL's Start: 04/06/24 10:48 Freq: Status: Active Protocol: Document 04/07/24 15:39 [facility] (Rec: 04/07/24 15:48 [facility] [id number]) OT ADL-Dressing General Eval Upper Body Dressing Ability Minimal Assistance Lower Body Dressing Ability Maximum Assistance Areas Needing Assistance Underpants/Brief,Socks,Shoes Comments OT Dressing Comments Re-educated to sydni clothing on her RLE first and take out last. Pt's states looking to get slip on shoes for the pt. M5 OT- IP IADL's Start: 04/06/24 10:48 Freq: Status: Active Protocol: Document 04/06/24 10:49 [facility] (Rec: 04/06/24 11:06 [facility] [id number]) OT-Instrumental Activities of Daily Living Deficits IADL Deficits Identified Deficits Home Safety Awareness Home Safety Comments Pt is a bit groggy and not thinking clearly as had ativan earlier for her anxiety. Medication Management Medication Management Comments Best for to assist. Money Management Money Management Comments Best for her to assist . Meal Preparation Meal Preparation Caregiver Provides Assist Airport Ramp Supervisor Airport Ramp Supervisor Caregiver Provides Assist M6 OT- IP Functional Cognition Start: 04/06/24 10:48 Freq: Status: Active Protocol: Document 04/07/24 15:39 [facility] (Rec: 04/07/24 15:48 [facility] [id number]) Cognitive Factors Limiting Selfcare Function Cognitive Ability Level of Alertness Confusional State Patient Orientation Name,Place,Situation Attention Span Ability Capable of Focused Attention, Unable to Sustain Attention Ability to Follow Commands Able to Follow One Step Commands with Increased Time, Able to Follow One Step Commands with Repetition Safety Awareness Decreased Recall of Precautions,Decreased Ability to Apply Precautions, Underestimates Need for Assistance Cognitive Comments Cognitive Assessment Comments Pt's has good safety and knowledge of pt's hip precautions and able to safely assist pt. Pt's grandson also at home to able to assist. M7 OT- IP Mobility and Balance Start: 04/06/24 10:48 Freq: Status: Active Protocol: Document 04/07/24 15:39 [facility] (Rec: 04/07/24 15:48 [facility] [id number]) OT-Transfer Assessment Sit to and From Stand Sit to and from Stand Moderate Assistance,Maximum Assistance,1 Person Assistance Comments Mobility Comments Pt's able to sydni gait belt and assist pt to stand. OT- Balance Assessment Sitting Balance and Reactions Static Sitting Balance Ability Good Dynamic Sitting Balance Ability Fair Standing Balance and Reactions Static Standing Balance Ability Fair M8 OT- IP Objective Assessments Start: 04/06/24 10:48 Freq: Status: Active Protocol: Document 04/06/24 10:49 [facility] (Rec: 04/06/24 11:06 [facility] [id number]) OT Gross Range of Motion Upper Extremity Range of Motion ROM Impairments WFL for transfer needs. OT Strength Comments Strength Comments WFL for transfer needs. M9 OT- IP Assessment and Plan Start: 04/06/24 10:48 Freq: Status: Active Protocol: Document 04/07/24 15:39 [facility] (Rec: 04/07/24 15:48 [facility] [id number]) OT Summary Assessment and Plan Potential Rehabilitation Potential Good Analytic Complexity at Evaluation Low Summary OT Impairments Pain,Strength,Balance, Functional Mobility,Grooming, Dressing,Toileting,Bathing, Toilet Transfers,Shower Transfers,Activity Tolerance Progress Towards Goals Progressing Toward Goals,Slow Progress due to Pain Assessment Summary Pt moving much better and now looking to go home with home health and 24/7 assist. Pt needing MAX vc for safety, hip precautions, and is easily distracted. Pt has all equipment needs at home and best to do home health at this time. Goals Self-Feeding Goal Independent Grooming Goal Independent Dressing Goal Moderate Assistance Toileting Goal Moderate Assistance Bathing Goal Moderate Assistance Toilet Transfer Goal Minimal Assistance Shower Transfer Goal Moderate Assistance Days to Meet Goals 15 Frequency of Treatment Other frequency 5x/week Treatment Plan OT Treatment Plan ADL Training,Functional Mobility,Patient/Family Education,Discharge Planning Discharge Recommendations OT Discharge Recommendations Home with 24/7 Assist Available,Home Health Transportation Needs at Discharge Private Vehicle
== END 2024-04-07 16:20 | disposition home or self-care (01) ==
LOC: OR 11:08 → AC 11:09
PROVIDERS: PCP Physician Assistant; Referring Provider Orthopaedic Surgery; Visit Provider Orthopaedic Surgery
PROC: 0SR90JZ Replacement of Right Hip Joint with Synthetic Substitute, Open Approach (ICD-10-PCS; CPT 27130; principal; 2024-04-05 13:15)
DX: M16.11 Unilateral primary osteoarthritis, right hip (principal); E66.01 Morbid (severe) obesity due to excess calories; E11.9 Type 2 diabetes mellitus without complications; Z68.39 Body mass index [BMI] 39.0-39.9, adult
CPT/HCPCS: 27130; 36415; 72170; 73502; 82962; 85014; 85018; 97162; 97165; 97530; 97535; C1776; C9290; J0171; J0690; J2250; J2405; J2704; J3010